=== PATIENT | female | born 1975 | race Two or more races ===

== ENCOUNTER → 2024-10-16 | Outpatient (CLI) | payer MEDICAID, SELFPAY ==
--- NOTE | 2024-10-16 10:45 | XR_ITS ---
Examination: Breast ultrasound complete, bilateral Date and time of exam: October 16, 2024 1116 hours INDICATIONS: Mammogram February 20, 2024 9 mm oval mass upper outer left breast Technique: Real-time grayscale ultrasonographic imaging bilateral breasts, including all 4 quadrants as well as nipple retroareolar and axillary regions. Findings: Sonographic images right breast Dilated ducts in the retroareolar region Sonographic images left breast Dilated ducts in the retroareolar region 12:00 cyst 4 x 5 mm 1:00 cyst 6 x 6 mm No solid nodules either breast IMPRESSION: BI-RADS Category 2: Benign findings
== END | disposition home or self-care (01) ==
LOC: CDIM 10:37
PROVIDERS: PCP Physician Assistant; Referring Provider Physician Assistant; Visit Provider Physician Assistant
DX: R92.30 Dense breasts, unspecified (principal)
CPT/HCPCS: 76641